=== PATIENT | female | born 1965 | race Hispanic/Latino ===

== ENCOUNTER 2016-12-04 16:27 | Inpatient (IN) | payer OTHER ==
[2016-12-04] MEDS ORDERED: NACL 0.9% 1000 ML 1,000 ML IV ONE ×2 (17:20→18:28)
--- NOTE | 2016-12-04 17:27 | Emergency Department Report ---
HPI - General Chief Complaint: Overdose Time Seen by Provider: 12/04/16 17:18 - HPI HPI: This is a 51-year-old female who presents to the emergency department via EMS from her home with complaint of possible overdose. Patient is currently awake and alert but did receive some Narcan in route by EMS. Patient says that she has been out of most of her medications including her anxiety medications for the past 2 weeks because her psychiatrist when out of town on vacation. She was self-medicating herself yesterday with a large amount of alcohol. She denies drinking as much today but did have some. On top of that, a neighbor came by and gave her three quarters of a bar of Xanax and which she thinks are 2 muscle relaxers. The patient says she was not trying to harm herself but thought that the muscle relaxers also treated anxiety and she was trying to treat that. The neighbor left but the patient's sister came by the house and found her to be on the ground and unable to get up so EMS was called. On top of the pills she also smokes marijuana. She denies any other illicit drug use at this time. Patient also received 1 L bolus of fluid in route. She has a history of hypertension, anxiety, depression. She takes Adderall, lisinopril, lorazepam. No current primary care doctor. Patient currently says she feels nervous and shaky. ED Past Medical Hx - Past Medical History Hx Hypertension: Yes Hx Arthritis: Yes Hx Psychiatric Treatment: Yes (Depression, Anxiety) Additional medical history: Arthritis - Surgical History Past Surgical History?: No Additional Surgical History: left wrist surgery. 2007 R knee surgery - Social History Smoking Status: Unknown if ever smoked Substance Use Type: Alcohol - Medications Home Medications: Home Medications Medication Instructions Recorded Confirmed Last Taken Type Lisinopril [Zestril TAB] 20 mg PO QDAY 11/26/13 12/04/16 02/04/14 07:30 History Dextroamphetamine/Amphetamine 30 mg PO QDAY 12/04/16 12/04/16 Unknown History [Adderall XR 30 mg] ED Review of Systems ROS: Stated complaint: OVERDOSE Other details as noted in HPI Comment: All other systems reviewed and negative Constitutional: denies: chills, fever Eyes: denies: eye pain, eye discharge, vision change ENT: denies: ear pain, throat pain Respiratory: denies: cough, shortness of breath, wheezing Cardiovascular: denies: chest pain, palpitations Gastrointestinal: denies: abdominal pain, nausea, diarrhea Genitourinary: denies: urgency, dysuria, discharge Musculoskeletal: denies: back pain, joint swelling, arthralgia Skin: denies: rash, lesions Neurological: weakness, confusion Physical Exam - Physical Exam Vital Signs: Vital Signs 12/04/16 12/04/16 12/04/16 16:56 17:00 17:10 Temperature 98.0 F Pulse Rate 79 76 Respiratory 13 21 17 Rate Blood Pressure 83/47 Blood Pressure 83/47 [Right] O2 Sat by Pulse 99 Oximetry Physical Exam: GENERAL: The patient is well-developed well-nourished. HEENT: Normocephalic. Atraumatic. Extraocular motions are intact. Patient has moist mucous membranes. Pupils equal reactive to light bilaterally. No nystagmus. NECK: Supple. Trachea is midline. CHEST/LUNGS: Clear to auscultation. There is no respiratory distress noted. HEART/CARDIOVASCULAR: Regular. There is mild tachycardia. There is no gallop rub or murmur. ABDOMEN: Abdomen is soft, nontender. Patient has normal bowel sounds. There is no abdominal distention. SKIN: There is no rash. There is no edema. There is no diaphoresis. NEURO: The patient is awake, alert, and oriented. The patient is cooperative. The patient has no focal neurologic deficits. Patient has a slightly stuttering speech. She has upper extremity mild tremors. MUSCULOSKELETAL: There is no tenderness or deformity. There is no limitation range of motion. There is no evidence of acute injury. ED Course Vital Signs 12/04/16 12/04/16 12/04/16 16:56 17:00 17:10 Temperature 98.0 F Pulse Rate 79 76 Respiratory 13 21 17 Rate Blood Pressure 83/47 Blood Pressure 83/47 [Right] O2 Sat by Pulse 99 Oximetry ED Medical Decision Making - Lab Data Result diagrams: 12/04/16 17:39 12/04/16 17:39 - EKG Data -: EKG Interpreted by Dc EKG shows normal: sinus rhythm, axis, intervals, QRS complexes (low voltage), ST -T waves Rate: normal - EKG Data When compared to previous EKG there are: previous EKG unavailable Interpretation: normal EKG - Radiology Data Radiology results: report reviewed CT of the head does not show any acute process including no hemorrhage, mass, shift, diffuse edema or skull fracture. - Medical Decision Making 51-year-old female presents to the emergency department after having unresponsive episode that was believed to be secondary to taking one Xanax and 2 muscle relaxers. Majority patient's labs are unremarkable. Her urine drug screen was positive for amphetamines but she is on Adderall. However her blood alcohol level came back at 0.08. Dad in itself is not impressive but the patient stopped drinking about 16 hours prior to that lab being checked. She admitted to heavy drinking the day before. The patient has a history of alcohol abuse or alcoholism but had gone a few years without drinking. When she was unable to get her anxiety medication she tried to self medicate. However now the patient appears to be having withdrawal symptoms. She did not have any hallucinations when she first presented but has had some intermittent hallucinations while in the emergency department. She still remains AAO 3 but has some upper extremity tremors as well. Patient was given some thiamine and was placed on the seawall protocol. A CT of the head was done that did not show any mass, bleed or any acute process. Patient will be admitted to hospital for further evaluation and has been accepted for admission by the hospitalist, Dr. Concepcion. - Differential Diagnosis alcohol intoxication, alcohol withdrawal, delirium tremens, polysubstance a Critical Care Time: No Critical care attestation.: If time is entered above; I have spent that time in minutes in the direct care of this critically ill patient, excluding procedure time. ED Disposition Clinical Impression: Polysubstance abuse, Hallucinations Alcohol withdrawal Qualifiers: Complication of substance-induced condition: with perceptual disturbance Qualified Code(s): F10.232 - Alcohol dependence with withdrawal with perceptual disturbance Disposition: OP ADMITTED IP TO THIS HOSP Is pt being admited?: Yes Condition: Stable Time of Disposition: 23:14
[2016-12-04 18:01] LABS: Basophils % (Auto) 0.8 % (0.0-1.8); Eosinophils % (Auto) 0.3 % (0.0-4.3); Hematocrit 36.9 % (30.3-42.9); Hemoglobin 12.6 gm/dl (10.1-14.3); Mean Corpuscular HGB Conc 34 % (30-34); Mean Corpuscular Hemoglobin 31 pg (28-32); Mean Corpuscular Volume 92 fl (79-97); Platelet Count 355 K/mm3 (140-440); Red Blood Count 4.01 M/mm3 (3.65-5.03); White Blood Count 10.9 K/mm3 (4.5-11.0)
--- NOTE | 2016-12-04 19:24 | Admit Criteria Form ---
Admission Criteria Documentation: ALCOHOL AND PSYCHOACTIVE SUBSTANCE WITHDRAWAL Clinical Indications for Inpatient Care (Place ' X' for any and all applicable criteria): Ongoing inpatient care may be indicated for substance withdrawal[B][C] with ANY ONE of the following(1)(2)(3)(4)(21): [ ]I. Delirium due to alcohol or sedative[D] withdrawal is present. [X ]II. Marked signs of withdrawal are present as indicated by ANY ONE of the following(15)(22)(23) [ ]a) Heart rate greater than 120 beats per minute is present. [ ]b) Severe vomiting is present (eg, precludes maintenance of oral hydration). [ ]c) Grossly visible tremor is present. [ ]d) Profuse perspiration is present. [ ]e) Temperature greater than 101 degrees F (38.3 degrees C) is present. [X ]f) Other signs of severe withdrawal are present (eg, Altered mental status ) [ ]g) Severe withdrawal identified by standardized assessment score[A] [ ]III. Signs of withdrawal that require continued inpatient treatment as indicated by ANY ONE of the following(15)(22)(23): [ ]a) Inadequate response to pharmacotherapy (eg, benzodiazepines) [ ]b) Outpatient or lower level of care is not feasible or appropriate (eg, unavailable or inappropriate to patient condition or treatment history). [ ]IV. Withdrawal signs with high-risk indicator are present as manifested by ALL of the following[A](15)(22)(23) [ ]a) Signs of withdrawal are present as indicated by ANY ONE of the following: [ ]i. Tachycardia is present. [ ]ii. Nausea or vomiting is present. [ ]iii. Tremor is present. [ ]iv. Increased perspiration is present. [ ]v. Other signs of withdrawal are present. [ ]vi. Withdrawal identified by standardized assessment score [A] [ ]b) Elevated risk due to historical or comorbid factor is present as indicated by ANY ONE of the following: [ ]i. History of delirium due to withdrawal is present. [ ]ii. History of seizures due to withdrawal is present.[E] [ ]iii. Intrinsic seizure disorder (epilepsy) is present. [ ]iv. Patient is . [ ]v. Other significant medical history (eg, severe cardiac disease) is present, which is assessed to be at risk for destabilization due to withdrawal. [ ]V. Serious electrolyte abnormalities (eg, hyponatremia, hypokalemia, hypophosphatemia) requiring correction performable only in inpatient setting(6)(25) [ ]. Severe hypoglycemia requiring glucose infusions performable only in inpatient setting(6) [ ]VII. Drug toxicity or instability, such as Altered mental status, respiratory depression, or arrhythmias, that requires inpatient care [ ]VIII. Danger judged unmanageable at lower level of care because of ANY ONE of the following [ ]a) Danger to self [ ]b) Danger to others [ ]c) Grave disability (eg, inability to perform self-care necessary at lower level of care) The original [facility] Care Guidelines content created by [employer] Care Guidelines has been revised. The portions of the content which have been revised are identified through the use of italic text or in bold. [facility] Guidelines has neither reviewed nor approved the modified material. All other unmodified content is copyright [facility] Care Guidelines. Please see references footnoted in the original [facility] CareGuidelines edition 2016 Admission Criteria Met: Yes
[2016-12-04 19:54] LABS: Alanine Aminotransferase 19 units/L (7-56); Albumin 3.6 g/dL (3.9-5); Albumin/Globulin Ratio 1.4 %; Alkaline Phosphatase 84 units/L (35-129); BUN/Creatinine Ratio 16.66; Bilirubin,Total 0.3 mg/dL (0.1-1.2); Blood Urea Nitrogen 10 mg/dL (7-17); Calcium 7.4 mg/dL (8.4-10.2); Carbon Dioxide 25 mmol/L (22-30); Chloride 94.2 mmol/L (98-107); Glucose 170 mg/dL (65-100); Potassium 3.7 mmol/L (3.6-5.0); Sodium 136 mmol/L (137-145); Total Protein 6.1 g/dL (6.3-8.2)
[2016-12-04 20:01] LABS: Anion Gap 21 mmol/L
[2016-12-04 20:55] LABS: Urine Drugs of Abuse Note Disclamer
[2016-12-04 21:10] LABS: Bacteria,Urine 1+ /HPF (Negative); Bilirubin,Urine NEG (Negative); Blood,Urine SM (Negative); Ketones,Urine NEG (Negative); Leukocyte Esterase,Urine NEG (Negative); Nitrite,Urine NEG (Negative); Protein,Urine <15 mg/dL mg/dL (Negative); Urobilinogen,Urine < 2.0 mg/dL (<2.0)
[2016-12-04] MEDS ORDERED: ATIVAN IV ONE (21:17)
[2016-12-04] MEDS ORDERED: ATIVAN IV PRN (21:57)
[2016-12-04] MEDS ORDERED: VITAMIN B-1 100 MG in NACL 0.9% 50 ML IV ONE (22:42)
--- NOTE | 2016-12-04 22:48 | Cat Scan Report ---
FINAL REPORT EXAM: CT HEAD/BRAIN WO CON HISTORY: AMS TECHNIQUE: Noncontrast CT axial images of the brain. PRIORS: None. FINDINGS: No parenchymal mass, mass effect, hemorrhage, midline shift or hydrocephalus. No evidence of acute cortical infarct. No abnormal, extra-axial fluid or air collection. Osseous calvarium grossly intact. IMPRESSION: 1. No acute intracranial findings.
[2016-12-04] MEDS: ATIVAN IV PRN (23:20)
--- NOTE | 2016-12-05 00:32 | History and Physical Report ---
History of Present Illness Date of examination: 12/05/16 History of present illness: 51-year-old woman with a history of anxiety depression, hypertension, osteoarthritis comes to the emergency room for evaluation of nausea vomiting, shaking 3 days and hallucination. Patient has a history of alcohol abuse and has been clean for many years. On November 17 she relapsed and started drinking 12 beers a day because she was unable to get her prescription for anxiety because her doctor was out of town. Her last drink was last night. The patient was unable to sleep she uses alcohol TOmedicate herself Patient denies chest pain, palpitation, shortness of breath, cough, abdominal pain, hematochezia, dysuria, frequency, focal weakness, dysarthria, fever chills , polydipsia polyuria, hot or cold intolerance, easy bruisability, or rash or bleeding from mucosal membrane, rhinorrhea, epistaxis, earache, tinnitus, blurry vision, eye discharge, anxiety, depression. Other review of systems negative PAST SURGICAL HISTORY: Right knee, wrist surgery SOCIAL HISTORY: Alcohol As discussed above, no tobacco or drugs FAMILY HISTORY: Hypertension Medications and Allergies Allergies Allergy/AdvReac Type Severity Reaction Status Date / Time promethazine HCl Allergy Unknown Verified 11/26/13 11:46 [From Phenergan] Home Medications Medication Instructions Recorded Confirmed Last Taken Type Lisinopril [Zestril TAB] 20 mg PO QDAY 11/26/13 12/04/16 02/04/14 07:30 History Dextroamphetamine/Amphetamine 30 mg PO QDAY 12/04/16 12/04/16 Unknown History [Adderall XR 30 mg] Active Meds: Active Medications Sodium Chloride (Nacl 0.9% 1000 Ml) 1,000 mls @ 125 mls/hr IV DIRECT ADELINA Lorazepam (Ativan) 4 mg IV Q15MIN PRN PRN Reason: CIWA-Ar >25 Lorazepam (Ativan) 2 mg IV Q1HR PRN PRN Reason: CIWA-Ar 8-15 Last Admin: 12/04/16 23:20 Dose: 2 mg Lorazepam (Ativan) 4 mg IV Q1HR PRN PRN Reason: CIWA-Ar 16-25 Exam - Physical Exam Narrative exam: Gen. appearance: Patient lying in bed, no apparent distress HEENT: Normocephalic, atraumatic, pupils equally round and reactive to light, extraocular movement intact, and no sclericterus,. No JVD or thyromegaly or nodule,neck supple, no carotid bruit ,mucous membranes moist, no exudate or erythema Heart: S1, S2, regular rate and rhythm Lungs: Clear to auscultation bilaterally, breathing comfortable Abdomen: Positive bowel sounds, nontender, nondistended, no organomegaly Extremity: Tremors, No edema, cyanosis, clubbing Skin: No rash, nodules, warm, dry Neuro: Oriented 3, cranial nerves II-12 intact, speech is fluent, motor and sensory intact - Constitutional Vitals: Temp Pulse Resp BP Pulse Ox 98.0 F 85 19 117/83 97 12/04/16 17:10 12/04/16 20:30 12/04/16 20:30 12/04/16 22:32 12/04/16 20:00 Results - Labs CBC & Chem 7: 12/04/16 17:39 12/04/16 17:39 Labs: Abnormal lab results 12/04/16 12/04/16 12/04/16 Range/Units 17:39 17:39 17:39 RDW 13.0 L (13.2-15.2) % Seg Neutrophils % 72.0 H (40.0-70.0) % Seg Neutrophils # 7.8 H (1.8-7.7) K/mm3 Sodium 136 L (137-145) mmol/L Chloride 94.2 L (98-107) mmol/L Creatinine 0.6 L (0.7-1.2) mg/dL Glucose 170 H (65-100) mg/dL Calcium 7.4 L (8.4-10.2) mg/dL Total Protein 6.1 L (6.3-8.2) g/dL Albumin 3.6 L (3.9-5) g/dL Salicylates < 0.3 L (2.8-20.0) mg/dL Plasma/Serum Alcohol (0-0.07) gm% 12/04/16 Range/Units 21:20 RDW (13.2-15.2) % Seg Neutrophils % (40.0-70.0) % Seg Neutrophils # (1.8-7.7) K/mm3 Sodium (137-145) mmol/L Chloride (98-107) mmol/L Creatinine (0.7-1.2) mg/dL Glucose (65-100) mg/dL Calcium (8.4-10.2) mg/dL Total Protein (6.3-8.2) g/dL Albumin (3.9-5) g/dL Salicylates (2.8-20.0) mg/dL Plasma/Serum Alcohol 0.08 H (0-0.07) gm% - Imaging and Cardiology CT Scan - head: report reviewed Assessment and Plan Alcohol withdrawal Anxiety Depression Admit medicine Start CIWA protocol with IV Ativan, IV fluid Start DVT prophylaxis
[2016-12-05] MEDS ORDERED: ZOFRAN IV PRN (02:36)
[2016-12-05] MEDS ORDERED: MILK OF MAGNESIA PO PRN (02:36)
[2016-12-05] MEDS ORDERED: TYLENOL PO PRN (02:36)
[2016-12-05] MEDS ORDERED: DULCOLAX PR PRN (02:36)
[2016-12-05] MEDS ORDERED: PERCOCET 5/325 PO PRN (02:36)
[2016-12-05] MEDS: NACL 0.9% 1000 ML 1,000 ML IV SCH ×2 (02:48→21:11)
[2016-12-05] MEDS: ATIVAN IV PRN ×6 (02:59→18:27)
[2016-12-05] MEDS: FOLVITE PO SCH (09:27)
[2016-12-05] MEDS: VITAMIN B-1 PO SCH (09:27)
--- NOTE | 2016-12-05 18:55 | Event Note ---
Date: 12/05/16 Patient seen and evaluated in her room this morning medical records reviewed Was admitted morning with alcohol withdrawal symptoms On CIWA protocol, patient complains of mild agitation and tremulousness Alert awake oriented 3 mild distress received Ativan per protocol Continue current management Consult strongly advised to quit alcohol, advise alcohol rehabilitation program upon discharge And also advised to attend [employer] meetings for assistance with alcohol rehabilitation. Patient verbalized understanding
[2016-12-06] MEDS: ATIVAN IV PRN ×7 (03:05→20:59)
[2016-12-06] MEDS: NACL 0.9% 1000 ML 1,000 ML IV SCH (04:59)
[2016-12-06 05:15] LABS: Basophils % (Auto) 1.8 % (0.0-1.8); Eosinophils % (Auto) 2.4 % (0.0-4.3); Hematocrit 36.6 % (30.3-42.9); Hemoglobin 12.4 gm/dl (10.1-14.3); Mean Corpuscular HGB Conc 34 % (30-34); Mean Corpuscular Hemoglobin 32 pg (28-32); Mean Corpuscular Volume 93 fl (79-97); Platelet Count 302 K/mm3 (140-440); Red Blood Count 3.94 M/mm3 (3.65-5.03); White Blood Count 8.3 K/mm3 (4.5-11.0)
[2016-12-06 05:33] LABS: Anion Gap 18 mmol/L; Blood Urea Nitrogen 6 mg/dL (7-17); Calcium 7.8 mg/dL (8.4-10.2); Carbon Dioxide 23 mmol/L (22-30); Chloride 104.6 mmol/L (98-107); Glucose 100 mg/dL (65-100); Magnesium 1.8 mg/dL (1.7-2.3); Potassium 3.5 mmol/L (3.6-5.0); Sodium 142 mmol/L (137-145)
[2016-12-06] MEDS ORDERED: K-DUR PO NR (08:00)
[2016-12-06] MEDS ORDERED: LASIX IV NR (08:00)
[2016-12-06] MEDS: ZESTRIL PO SCH (09:47)
[2016-12-06] MEDS: VITAMIN B-1 PO SCH (09:47)
[2016-12-06] MEDS: FOLVITE PO SCH (09:48)
--- NOTE | 2016-12-06 17:05 | Progress Note ---
Assessment and Plan Assessment and plan: --Alcohol withdrawal symptoms Continue CIWA protocol, DC IV fluids Thiamine folic acid, supportive care --Chronic alcohol use Counseling done patient advised to quit alcohol intake --Depression Assume home medications --DVT prophylaxis --DC planning per case management Possible discharge in 1-2 days if stable History Interval history: Patient seen and evaluated medical records reviewed Continues to have tremulousness and agitation On CIWA protocol Patient denies any chest pain or shortness of breath Alert awake oriented 3 not in acute distress Hospitalist Physical - Constitutional Vitals: Temp Pulse Resp BP Pulse Ox 97.4 F L 104 H 18 117/69 97 12/06/16 12:30 12/06/16 12:30 12/06/16 12:30 12/06/16 12:30 12/06/16 12:30 General appearance: Present: no acute distress, well-nourished, other (mild tremulousness) - EENT Eyes: Present: PERRL, EOM intact - Neck Neck: Present: supple, normal ROM - Respiratory Respiratory effort: normal Respiratory: bilateral: diminished, negative: rales, rhonchi, wheezing - Cardiovascular Rhythm: regular Heart Sounds: Present: S1 & S2 - Extremities Extremities: no ischemia, pulses intact, pulses symmetrical Peripheral Pulses: within normal limits - Abdominal General gastrointestinal: soft, non-tender, non-distended, normal bowel sounds - Integumentary Integumentary: Present: clear, warm - Psychiatric Psychiatric: appropriate mood/affect, cooperative - Neurologic Neurologic: CNII-XII intact, moves all extremities Results - Labs CBC & Chem 7: 12/06/16 04:29 12/06/16 04:29 Labs: Laboratory Last Values WBC 8.3 K/mm3 (4.5-11.0) 12/06/16 04:29 RBC 3.94 M/mm3 (3.65-5.03) 12/06/16 04:29 Hgb 12.4 gm/dl (10.1-14.3) 12/06/16 04:29 Hct 36.6 % (30.3-42.9) 12/06/16 04:29 MCV 93 fl (79-97) 12/06/16 04:29 MCH 32 pg (28-32) 12/06/16 04:29 MCHC 34 % (30-34) 12/06/16 04:29 RDW 13.0 % (13.2-15.2) L 12/06/16 04:29 Plt Count 302 K/mm3 (140-440) 12/06/16 04:29 Lymph % (Auto) 25.1 % (13.4-35.0) 12/06/16 04:29 Morgan % (Auto) 6.3 % (0.0-7.3) 12/06/16 04:29 Eos % (Auto) 2.4 % (0.0-4.3) 12/06/16 04:29 Baso % (Auto) 1.8 % (0.0-1.8) 12/06/16 04:29 Lymph # 2.1 K/mm3 (1.2-5.4) 12/06/16 04:29 Morgan # 0.5 K/mm3 (0.0-0.8) 12/06/16 04:29 Eos # 0.2 K/mm3 (0.0-0.4) 12/06/16 04:29 Baso # 0.1 K/mm3 (0.0-0.1) 12/06/16 04:29 Seg Neutrophils % 64.4 % (40.0-70.0) 12/06/16 04:29 Seg Neutrophils # 5.3 K/mm3 (1.8-7.7) 12/06/16 04:29 Sodium 142 mmol/L (137-145) 12/06/16 04:29 Potassium 3.5 mmol/L (3.6-5.0) L 12/06/16 04:29 Chloride 104.6 mmol/L (98-107) 12/06/16 04:29 Carbon Dioxide 23 mmol/L (22-30) 12/06/16 04:29 Anion Gap 18 mmol/L 12/06/16 04:29 BUN 6 mg/dL (7-17) L 12/06/16 04:29 Creatinine 0.6 mg/dL (0.7-1.2) L 12/06/16 04:29 Estimated GFR > 60 ml/min 12/06/16 04:29 BUN/Creatinine Ratio 10.00 % 12/06/16 04:29 Glucose 100 mg/dL (65-100) 12/06/16 04:29 Calcium 7.8 mg/dL (8.4-10.2) L 12/06/16 04:29 Magnesium 1.8 mg/dL (1.7-2.3) 12/06/16 04:29 Total Bilirubin 0.3 mg/dL (0.1-1.2) 12/04/16 17:39 AST 28 units/L (5-40) 12/04/16 17:39 ALT 19 units/L (7-56) 12/04/16 17:39 Alkaline Phosphatase 84 units/L (35-129) 12/04/16 17:39 Troponin T < 0.010 ng/mL (0.00-0.029) 12/04/16 17:39 Total Protein 6.1 g/dL (6.3-8.2) L 12/04/16 17:39 Albumin 3.6 g/dL (3.9-5) L 12/04/16 17:39 Albumin/Globulin Ratio 1.4 % 12/04/16 17:39 TSH 1.500 mlU/mL (0.270-4.200) 12/04/16 17:39 Urine Color Yellow (Yellow) 12/04/16 20:28 Urine Turbidity Slightly-cloudy (Clear) 12/04/16 20:28 Urine pH 6.0 (5.0-7.0) 12/04/16 20:28 Ur Specific [place] 1.013 (1.003-1.030) 12/04/16 20:28 Urine Protein <15 mg/dl mg/dL (Negative) 12/04/16 20:28 Urine Glucose (UA) Neg mg/dL (Negative) 12/04/16 20:28 Urine Ketones Neg mg/dL (Negative) 12/04/16 20:28 Urine Blood Sm (Negative) 12/04/16 20:28 Urine Nitrite Neg (Negative) 12/04/16 20:28 Urine Bilirubin Neg (Negative) 12/04/16 20:28 Urine Urobilinogen < 2.0 mg/dL (<2.0) 12/04/16 20:28 Ur Leukocyte Esterase Neg (Negative) 12/04/16 20:28 Urine WBC (Auto) 2.0 /HPF (0.0-6.0) 12/04/16 20:28 Urine RBC (Auto) 2.0 /HPF (0.0-6.0) 12/04/16 20:28 U Epithel Cells (Auto) 5.0 /HPF (0-13.0) 12/04/16 20:28 Urine Bacteria (Auto) 1+ /HPF (Negative) 12/04/16 20:28 Salicylates < 0.3 mg/dL (2.8-20.0) L 12/04/16 17:39 Urine Opiates Screen Presumptive negative 12/04/16 20:28 Urine Methadone Screen Presumptive negative 12/04/16 20:28 Acetaminophen < 15.0 ug/mL (10.0-30.0) 12/04/16 17:39 Ur Barbiturates Screen Presumptive negative 12/04/16 20:28 Ur Phencyclidine Scrn Presumptive negative 12/04/16 20:28 Ur Amphetamines Screen Presumptive positive 12/04/16 20:28 U Benzodiazepines Scrn Presumptive negative 12/04/16 20:28 Urine Cocaine Screen Presumptive negative 12/04/16 20:28 U Marijuana (THC) Screen Presumptive negative 12/04/16 20:28 Drugs of Abuse Note Disclamer 12/04/16 20:28 Plasma/Serum Alcohol 0.08 gm% (0-0.07) H 12/04/16 21:20
[2016-12-07] MEDS: FOLVITE PO SCH (09:40)
[2016-12-07] MEDS: ZESTRIL PO SCH (09:40)
[2016-12-07] MEDS: VITAMIN B-1 PO SCH (09:40)
--- NOTE | 2016-12-07 11:14 | Discharge Summary ---
Providers - Providers Date of Admission: 12/05/16 00:28 Date of discharge: 12/07/16 Attending physician: YOSEF LYN Primary care physician: TOE STAPLER Hospitalization Condition: Stable Disposition: DISCHARGED TO HOME OR SELFCARE Time spent for discharge: 31 min Core Measure Documentation - Palliative Care Palliative Care/ Comfort Measures: Not Applicable - Core Measures Any of the following diagnoses?: none Exam - Constitutional Vitals: Temp Pulse Resp BP Pulse Ox 98.1 F 97 H 20 121/89 98 12/07/16 07:30 12/07/16 09:40 12/07/16 07:30 12/07/16 09:40 12/07/16 07:30 General appearance: Present: no acute distress, well-nourished, other (no tremulousness or agitation) - EENT Eyes: Present: PERRL, EOM intact - Neck Neck: Present: supple, normal ROM - Respiratory Respiratory effort: normal Respiratory: bilateral: diminished, negative: rales, rhonchi, wheezing - Cardiovascular Rhythm: regular Heart Sounds: Present: S1 & S2 - Extremities Extremities: no ischemia, pulses intact, pulses symmetrical - Abdominal General gastrointestinal: Present: soft, non-tender, non-distended, normal bowel sounds - Integumentary Integumentary: Present: clear, warm - Musculoskeletal Musculoskeletal: strength equal bilaterally, generalized weakness - Psychiatric Psychiatric: appropriate mood/affect, cooperative - Neurologic Neurologic: CNII-XII intact, moves all extremities Plan Activity: advance as tolerated, no driving until cleared by PCP Diet: regular Additional Instructions: Patient strongly advised to quit alcohol intake. Advised alcoholic rehabilitation. Strongly advised to attend [employer] meetings, patient reports she already attends the group. Patient strongly advised not to drive OPERATE heavy machinery while under. the influence of alcohol. f/u behavioral health in 3-4 days Follow up with: [facility] [Outside] - 7 Days PRIMARY CARE,MD [Primary Care Provider] - 3-5 Days Prescriptions: ALPRAZolam [Xanax TAB] 0.25 mg PO BID PRN #10 tab PRN Reason: Anxiety Folic Acid [Folvite] 1 mg PO QDAY #30 tablet Lisinopril [Zestril TAB] 20 mg PO QDAY #30 tablet Thiamine [Vitamin B-1] 100 mg PO QDAY #30 tablet
[2016-12-07 11:19] VITALS: BP 134/78
== END 2016-12-07 12:57 | disposition home or self-care (01) | DRG 897 ==
LOC: ED 16:27 → 4A 12-05 00:28
PROVIDERS: ADMIT Internal Medicine; ATTEND Internal Medicine
DX: F10.232 Alcohol dependence with withdrawal with perceptual disturbance (principal); F41.9 Anxiety disorder, unspecified; F32.9 Major depressive disorder, single episode, unspecified; F12.90 Cannabis use, unspecified, uncomplicated; I10 Essential (primary) hypertension; M19.90 Unspecified osteoarthritis, unspecified site; Z88.8 Allergy status to other drugs, medicaments and biological substances; Z82.49 Family history of ischemic heart disease and other diseases of the circulatory system; Z98.890 Other specified postprocedural states
CPT/HCPCS: 36415; 70450; 80048; 80053; 80307; 80320; 81001; 82962; 83735; 84443; 84484; 85025; 93005; 93010; 96361; 96365; 96375; G0480; J1940; J2060; J2405; J3411; J7030